=== PATIENT | female | born 1950 | race Caucasian/White ===

== ENCOUNTER 2018-02-26 06:03 | Day surgery (SDC) | payer BC ==
[2018-02-21 16:07] VITALS: BMI 44.4
[2018-02-26] MEDS ORDERED: MIDAZOLAM HCL 2 MG/2 ML SINGLE DOSE VIAL ONE (07:56)
[2018-02-26] MEDS ORDERED: LIDOCAINE HCL/PF 2% SDV 5ML VIAL ONE (07:56)
[2018-02-26] MEDS ORDERED: PROPOFOL 20 ML ONE ×2 (07:56)
--- NOTE | 2018-02-26 08:03 | HP ---
Admitting History and Physical - Admission Chief Complaint: Endometrial polyp History of Present Illness: 67 yo Para 0, with endometrial echo complex is pre op for D&C Hysteroscopy. History Source: Patient Limitations to Obtaining History: No Limitations - Past Medical History ...: No ...: 0 ...Para: 0 - Past Surgical History Past Surgical History: Yes: None - Smoking History Smoking history: Never smoked Have you smoked in the past 12 months: No - Alcohol/Substance Use Hx Alcohol Use: Yes (OCCASIONAL) - Social History Usual Living Arrangement: Yes: Alone History of Recent Travel: No Home Medications - Allergies Allergies/Adverse Reactions: Allergies Allergy/AdvReac Type Severity Reaction Status Date / Time latex Allergy Intermediate rash Unverified 02/26/18 06:38 aspirin Allergy Verified 02/26/18 06:38 stargaze juvenal Allergy Vertigo, Uncoded 02/26/18 06:38 gasjm nj - Home Medications Home Medications: Ambulatory Orders Ca Cmb No.1/Vit D3/B-6/FA/B12 [Vitamin D3 1,000 Unit Tablet] 1 each PO AM tablet 09/27/12 Calcium Carbonate/Vitamin D3 [Calcarb 600 W-Vitamin D Tab] 1 each PO AM tablet 09/27/12 Fluticasone Propionate [Flonase] 16 gm NS PRN PRN 10/16/13 Allopurinol 300 mg PO DAILY 02/21/18 Colchicine 0.6 mg PO DAILY 02/21/18 Family Disease History - Family Disease History Family History: Unremarkable Review of Systems - Review of Systems Constitutional: reports: No Symptoms Eyes: reports: No Symptoms HENT: reports: No Symptoms Neck: reports: No Symptoms Cardiovascular: reports: No Symptoms Respiratory: reports: No Symptoms Gastrointestinal: reports: No Symptoms Genitourinary: reports: No Symptoms Breasts: reports: No Symptoms Reported Musculoskeletal: reports: No Symptoms Integumentary: reports: No Symptoms Neurological: reports: No Symptoms Endocrine: reports: No Symptoms Psychiatric: reports: No Symptoms Pain Intensity: 0 Physical Examination Vital Signs: Vital Signs Temperature 97.6 F 02/26/18 06:35 Pulse Rate 52 L 02/26/18 06:35 Respiratory Rate 20 02/26/18 06:35 Blood Pressure 108/57 02/26/18 06:35 O2 Sat by Pulse Oximetry (%) 98 08/07/18 06:36 Constitutional: Yes: Well Nourished Eyes: Yes: Conjunctiva Clear HENT: Yes: Atraumatic Neck: Yes: Supple Cardiovascular: Yes: Regular Rate and Rhythm Respiratory: Yes: Regular Gastrointestinal: Yes: Normal Bowel Sounds Musculoskeletal: Yes: WNL Extremities: Yes: WNL Neurological: Yes: Alert, Oriented ...Motor Strength: WNL Psychiatric: Yes: Alert, Oriented Problem List - Problems (1) Endometrial polyp Code(s): N84.0 - POLYP OF CORPUS UTERI Assessment/Plan Pre op for D&C Hysteroscopy Consent signed Anesthesia to see patient
[2018-02-26] MEDS ORDERED: DEXAMETHASONE SOD PHOSPHATE 4 MG/1 ML VIAL ONE (08:10)
[2018-02-26] MEDS ORDERED: KETOROLAC TROMETHAMINE 30 MG/1 ML VIAL ONE (08:10)
--- NOTE | 2018-02-26 08:31 | OP ---
Operative Note - Note: Operative Date: 02/26/18 Pre-Operative Diagnosis: Endometrial polyp Operation: D&C Hysteroscopy Findings: Several polyps visualized Post-Operative Diagnosis: Same as Pre-op Surgeon: Ira Regalado Anesthesia: General Specimens Removed: Endometrial curetings Estimated Blood Loss (mls): 5
[2018-02-26] MEDS ORDERED: ONDANSETRON 4 MG/2 ML VIAL IVPUSH PRN (08:42)
[2018-02-26] MEDS ORDERED: oxyCODONE HCL 5 MG TABLET PO PRN (08:42)
[2018-02-26] MEDS ORDERED: LACTATED RINGERS SOLUTION 1,000 ML IV SCH (08:45)
[2018-02-26 10:06] VITALS: TEMP 98
[2018-02-26 11:39] VITALS: BP 102/59; PULSE 53
--- NOTE | 2018-02-28 17:26 | PATH ---
Surgical Pathology Report Patient Name: NATO RODRIGEZ [facility]. Rec. #: [id number] /Age/Gender: 1950 (Age: 67) / F Account: [id number] Location: [facility] Taken: 02/26/2018 Received: 02/26/2018 Reported: 02/28/2018 Physicians: Ira Regalado M.D. Specimen(s) Received ENDOMETRIAL CURETTINGS Clinical History Endometrial polyp Final Diagnosis ENDOMETRIAL CURETTINGS, DILATION AND CURETTAGE: COMPLEX ATYPICAL HYPERPLASIA, CANNOT EXCLUDE WELL-DIFFERENTIATED ADENOCARCINOMA. BENIGN ECTOCERVICAL TISSUE. Comment: Case seen interdepartmentally. Findings discussed with Dr. Regalado. Electronically Signed Marita Ricks M.D. Gross Description Received in formalin labeled "endometrial curettings," is a 2.3 x 2.1 x 0.3 cm aggregate of leone-red soft tissue fragments admixed with blood clot. The formalin is filtered and the specimen is entirely submitted in one cassette. 02/26/2018 saudi02/26/2018
--- NOTE | 2018-04-02 13:35 | OP ---
DATE OF OPERATION: 02/26/2018 PREOPERATIVE DIAGNOSIS: Endometrial polyp. POSTOPERATIVE DIAGNOSIS: Endometrial polyp. PROCEDURE: Dilatation and curettage, hysteroscopy. SURGEON: Ira Regalado MD ANESTHESIA: General. COMPLICATIONS: None. ESTIMATED BLOOD LOSS: 5 mL. DESCRIPTION OF PROCEDURE: Patient was taken to the operating room, where general anesthesia was administered. Patient was then prepped and draped in proper sterile fashion. A weighted speculum was placed in the vagina. The anterior lip of the cervix was grasped with a single-tooth tenaculum. The cervix was then sequentially dilated. Then, a 5-mm hysteroscope was then gently introduced into the uterine cavity. The cavity was visualized. Several polyps noted in the cavity. Then, the hysteroscope was removed. A sharp curettage was then performed. Upon completion of the procedure , the instruments were removed. The patient was taken out of lithotomy position. She was taken to PACU in stable condition. PATHOLOGY: Endometrial curettings. Bud [id number] MTDD
== END 2018-02-26 11:46 | disposition home or self-care (01) ==
LOC: JASU-SURG 06:03
PROVIDERS: ATTEND Obstetrics & Gynecology
PROC: 0UDB7ZX Extraction of Endometrium, Via Natural or Artificial Opening, Diagnostic (ICD-10-PCS; principal; 2018-02-26 08:00)
PROC: 0UJD8ZZ Inspection of Uterus and Cervix, Via Natural or Artificial Opening Endoscopic (ICD-10-PCS; 2018-02-26 08:00)
DX: N84.0 Polyp of corpus uteri (principal)
CPT/HCPCS: 88305-TC; 94760

== ENCOUNTER 2018-04-02 09:43 | Day surgery (SDC) | payer BC ==
[2018-04-01 14:05] VITALS: BMI 43.7
--- NOTE | 2018-04-02 15:02 | HP ---
History & Physical Update - History History: No Change - Physical Physical: No Change - Assessment Assessment: No Change - Plan Plan: No Change
[2018-04-02] MEDS ORDERED: MIDAZOLAM HCL 2 MG/2 ML SINGLE DOSE VIAL ONE (15:15)
[2018-04-02] MEDS ORDERED: DEXAMETHASONE SOD PHOSPHATE 4 MG/1 ML VIAL ONE (15:15)
[2018-04-02] MEDS ORDERED: PROPOFOL 20 ML ONE (15:15)
[2018-04-02] MEDS ORDERED: ROCURONIUM BROMIDE 50 MG/5 ML VIAL ONE (15:15)
[2018-04-02] MEDS ORDERED: fentaNYL CITRATE 250 MCG/5 ML VIAL ONE (15:15)
[2018-04-02] MEDS ORDERED: LIDOCAINE HCL/PF 2% SDV 5ML VIAL ONE (15:15)
[2018-04-02] MEDS ORDERED: ceFAZolin SODIUM 1 GM VIAL IVPB ONE (15:35)
[2018-04-02] MEDS ORDERED: BUPIVACAINE HCL/PF 0.25% (2.5MG/ML) 10 ML VIAL ONE (15:55)
[2018-04-02] MEDS ORDERED: LIDOCAINE 1%/EPI 1:100000 (20 ML MULTI DOSE VIAL) ONE (15:55)
[2018-04-02] MEDS ORDERED: INDOCYANINE GREEN 25 MG/10 ML VIAL IVPUSH ONE ×2 (15:55→16:06)
[2018-04-02] MEDS ORDERED: BUPIVACAINE HCL/PF (5 MG/ML) 30 ML VIAL IJ ONE ×3 (16:05→16:15)
[2018-04-02] MEDS ORDERED: ceFAZolin SODIUM 1 GM VIAL ONE (16:14)
[2018-04-02] MEDS ORDERED: ePHEDrine SULFATE 50 MG/1 ML AMPULE ONE (17:17)
[2018-04-02] MEDS ORDERED: oxyCODONE HCL 5 MG TABLET PO PRN (17:24)
[2018-04-02] MEDS ORDERED: PROMETHAZINE HCL 25 MG/1 ML VIAL IVPUSH PRN (17:24)
[2018-04-02] MEDS ORDERED: ONDANSETRON 4 MG/2 ML VIAL IVPUSH PRN (17:24)
[2018-04-02] MEDS ORDERED: LACTATED RINGERS SOLUTION 1,000 ML IV SCH (17:30)
[2018-04-02] MEDS ORDERED: NEOSTIGMINE METHYLSULFATE 0.5 MG/ML - 10 ML MDV ONE (17:50)
[2018-04-02] MEDS ORDERED: GLYCOPYRROLATE 0.2 MG/1 ML VIAL ONE ×2 (17:51)
[2018-04-02] MEDS ORDERED: KETOROLAC TROMETHAMINE 30 MG/1 ML VIAL ONE (17:51)
--- NOTE | 2018-04-02 18:34 | OP ---
Operative Note - Note: Operative Date: 04/02/18 Pre-Operative Diagnosis: complex atypical hyperplasia, cannot exclude FIGO grade 1 endometrial adenocarcinoma Operation: Robotic total hysterectomy, bilateral salpingoophorectomy, bilateral pelvic sentinel lymph node dissection Findings: uterus 6 week size, bilateral tubes and ovaries normal. No intraabdominal e/o disease. 2 cm left obturator lymph node. No ascites.Upper abdomen normal. Post-Operative Diagnosis: Same as Pre-op Surgeon: Dorothea Slaughter Anesthesia: General, Local Specimens Removed: uterus, cervix, bilateral tubes and ovaries, bilateral pelvic lymph nodes, washings. Estimated Blood Loss (mls): 100 Drains, Volume Out (mls): 0 Operative Report Dictated: Yes
[2018-04-02] MEDS ORDERED: PROCHLORPERAZINE INJECTION 10 MG/2 ML VIAL IVPB PRN (18:36)
[2018-04-02] MEDS ORDERED: diphenhydrAMINE HCL 25 MG CAPSULE (FP) PO PRN (18:36)
[2018-04-02] MEDS ORDERED: ONDANSETRON 4 MG/2 ML VIAL IVPB PRN (18:36)
[2018-04-02] MEDS ORDERED: KETOROLAC TROMETHAMINE 15 MG/ML VIAL IVPUSH SCH (19:00)
[2018-04-02] MEDS: LACTATED RINGERS SOLUTION 1,000 ML IV SCH (20:30)
--- NOTE | 2018-04-02 21:09 | OP ---
DATE OF OPERATION: 04/02/2018 PREOPERATIVE DIAGNOSES: 1. Complex atypical hyperplasia. Cannot exclude a FIGO grade 1 endometrial carcinoma. 2. Morbid obesity. POSTOPERATIVE DIAGNOSES: 1. Complex atypical hyperplasia. Cannot exclude a FIGO grade 1 endometrial carcinoma. 2. Morbid obesity. PROCEDURE: Robotic-assisted total hysterectomy, bilateral salpingo-oophorectomy, bilateral pelvic sentinel lymph node dissection. SURGEON: Dorothea Slaughter MD ANESTHESIA: General endotracheal. ESTIMATED BLOOD LOSS: 100 mL. INDICATIONS: This is a 67-year-old with history of postmenopausal vaginal bleeding. She had a D&C hysteroscopy on February 26, 2018. The pathology returned complex atypical hyperplasia, cannot exclude well-differentiated adenocarcinoma. The patient was counseled regarding surgical management. Risks, benefits, indications, alternatives were discussed with patient. All questions were answered. Informed consent was signed. FINDINGS: Normal liver edge, normal omentum, normal diaphragm. The uterus was approximately 6 weeks size. Bilateral tubes and ovaries appeared normal. There was no lymphadenopathy. There was a moderately enlarged left obturator lymph node, which was not a sentinel lymph node. Evart lymph node on the left did not map well; however, on the right, the right internal iliac sentinel lymph node mapped very clear. PROCEDURE: The patient was taken to the operating room, placed in the dorsal supine position. General endotracheal anesthesia was obtained without difficulty. She was placed in the dorsal lithotomy position in Prieto stirrups and prepped and draped in the normal sterile fashion. A Jacobson catheter was placed in the bladder. A speculum was placed in the vagina. The cervix was grasped with a single-tooth tenaculum and gently dilated. Then 4 mL of 1.25 mg/mL indigo cyanine dye was injected into the cervix at 3 and 9 o'clock superficially and then at 1 cm deep. A [id number] stitch of 0 Vicryl was placed and the VCare uterine manipulator was placed. The tenaculum and speculum were then removed. Attention was turned to the patient's abdomen. Then 5 mL of 0.25% Marcaine was injected into the umbilicus and an 8-mm incision was made with a scalpel, while tenting the anterior abdominal wall. The Veress needle was inserted intraabdominally and the abdomen was insufflated with CO2 gas. An 8-mm trocar was then placed. An additional 8-mm trocar was placed in the left mid quadrant laterally and an 8-mm trocar was placed in the right mid quadrant and a 5-mm port was placed in the right lower quadrant. All trocars were placed under direct visualization after injecting 0.5% Marcaine. A thorough exam of the abdomen and pelvis revealed the above-noted findings. Peritoneal washings were taken using normal saline. The da Di robot was then docked without difficulty. Attention was turned to the patient's pelvis. The left adnexa was elevated, left ureter was noted to be well away from the field of dissection. The left infundibulopelvic ligament was clamped, cauterized, and transected. This was carried through the broad ligament and the round ligament and the vesicouterine peritoneum anteriorly. We looked in the left pelvic sidewall for the sentinel lymph node using Firefly. We were not able to visualize a lymph node at this point so we began the dissection on the right side. The right retroperitoneum was opened. The right retroperitoneum was opened. The right round ligament was clamped, cauterized, and transected. The right ureter was noted to be well away from the field of dissection. The right infundibulopelvic ligament was clamped, cauterized, and transected. This was carried through the broad ligament and the vesicouterine peritoneum anteriorly. The bladder was dissected off the anterior cervix and upper vagina. The uterine arteries bilaterally were skeletonized. They were clamped, cauterized and transected. We looked at the right retroperitoneum, then we were able to dissect the right sentinel lymph node from deep in the right internal iliac space. This was removed and handed off the field. Excellent hemostasis was seen. Surgicel was placed for added assurance. The cardinal ligaments were serially clamped, cauterized and transected. The uterosacral ligaments were clamped, cauterized and transected. Again, we looked in the left retroperitoneum. We opened the obturator space and a sentinel node was not able to be identified. There was, however, a very large, approximately 2 cm lymph node in the left obturator space. This was removed. It did not light up bright green, however. It was handed off the field. The vaginotomy incision was made circumferentially. Uterus, cervix, ovaries, and tubes were passed through the vagina without difficulty. The vaginal cuff was closed in a running continuous fashion using 2-0 V-Loc suture. The pelvis was thoroughly irrigated with saline and noted to be hemostatic. There was some bleeding in the left parametria, which was clamped and cauterized, with care taken to avoid the ureter. Surgicel was placed there for hemostasis. Additional Surgicel was placed on lymph node beds and the vaginal cuff. The pelvis was thoroughly irrigated with saline and noted to be hemostatic. All instruments were removed from the patient's abdomen. Again we looked intraabdominally and excellent hemostasis was seen. The da Di robot was then undocked. The trocars were removed. Skin was closed with 4-0 Monocryl and Dermabond was applied. The patient was extubated and transferred in stable condition to the PACU. Dorothea Slaughter M.D. JOSH/[id number]
[2018-04-02] MEDS: MORPHINE SULFATE 2 MG/ML VIAL IVPUSH SCH (22:24)
[2018-04-02] MEDS: ACETAMINOPHEN 325 MG TABLET (FP) PO SCH ×2 (22:26→23:22)
[2018-04-02] MEDS ORDERED: MORPHINE SULFATE 2 MG/ML VIAL IVPUSH PRN (23:42)
[2018-04-03] MEDS ORDERED: MORPHINE SULFATE 2 MG/ML VIAL IVPUSH SCH (01:00)
[2018-04-03] MEDS: KETOROLAC TROMETHAMINE 30 MG/1 ML VIAL IVPUSH SCH ×2 (03:03→09:00)
[2018-04-03] MEDS: LACTATED RINGERS SOLUTION 1,000 ML IV SCH ×2 (04:01→12:00)
[2018-04-03] MEDS: ACETAMINOPHEN 325 MG TABLET (FP) PO SCH ×3 (06:26→18:13)
[2018-04-03] MEDS ORDERED: LISINOPRIL 20 MG TABLET (FP) PO SCH ×2 (07:00→16:52)
[2018-04-03 08:08] LABS: HEMATOCRIT 32.1 % (32.4-45.2); HEMOGLOBIN 10.7 GM/dL (10.7-15.3); MCH 30.7 pg (25.7-33.7); MCHC 33.5 g/dl (32.0-36.0); MEAN CELL VOLUME 91.8 fl (80-96); MEAN PLT VOLUME 10.5 fl (7.5-11.1); PLATELET COUNT 66 K/MM3 (134-434); RBC 3.49 M/mm3 (3.60-5.2); RDW 14.4 % (11.6-15.6)
[2018-04-03 08:30] LABS: ANION GAP 10 MMOL/L (8-16); BLOOD UREA NITROGEN 32 mg/dL (7-18); CALCIUM 8.2 mg/dL (8.5-10.1); CHLORIDE 102 mmol/L (98-107); CO2 25 mmol/L (21-32); CREATININE 1.6 mg/dL (0.55-1.02); GLUCOSE,RANDOM 123 mg/dL (74-106); SODIUM 137 mmol/L (136-145)
[2018-04-03] MEDS ORDERED: ALLOPURINOL 100 MG TABLET (FP) PO SCH (10:00)
[2018-04-03] MEDS ORDERED: COLCHICINE 0.6 MG TABLET (FP) PO SCH (10:00)
[2018-04-03] MEDS ORDERED: ATENOLOL 50 MG TABLET (FP) PO SCH ×2 (10:00→16:53)
[2018-04-03] MEDS ORDERED: HYDROCHLOROTHIAZIDE 25 MG TABLET (FP) PO SCH (10:00)
--- NOTE | 2018-04-03 11:23 | PN ---
Progress Note (short form) - Note Progress Note: POD#1 Pt feeling better after oob to chair and eating. No CP/SOB, slight dizzy today. She is having no pain and is using tylenol for her pain management. Her dominique was removed this am and she is waiting to void. Vital Signs Period Temp Pulse Resp BP Sys/Griffith Pulse Ox Last 24 Hr 97.5 F-98.5 F 48-63 13-18 89-130/33-80 96-100 GEN: A&0x3, NAD CV: RRR Lungs: CTA b/l anteriorly ABD: soft, non-distended, non-tender. Inc c/d/i with dermabond CBC, BMP //18 07:15 /18 07:15 A/P: 67 yo female s/p Robotic total hysterectomy, bilateral salpingoophorectomy , bilateral pelvic sentinel lymph node dissection Pt oob to chair today Awaiting TOV Continue IV fluids, pt with slight hypotension/dizziness today. Will continue to monitor her and reasses VS. Slight increase in BUN/CRET Pain mangment as needed Stop IV Toradol D/w Dr. Bell
--- NOTE | 2018-04-03 12:45 | PN ---
Progress Note (short form) - Note Progress Note: Anesthesia POD#1 S/P Robotic Hysterectomy and Salpingectomy under GA VSS,some dizziness today,no pain issues,creatinine brielle high. No N/V. A/P Continue hydration. No other problems seen. Liea Nance MD.
[2018-04-03 13:27] VITALS: PULSE 50; TEMP 97.7
[2018-04-03] MEDS ORDERED: SODIUM CHLORIDE 500 ML IV STA (15:23)
[2018-04-03] MEDS ORDERED: LACTATED RINGERS SOLUTION 1,000 ML/1,000 ML INFUS.BAG IV SCH (15:30)
[2018-04-03 16:59] VITALS: BP 115/49
[2018-04-03] MEDS ORDERED: SODIUM CHLORIDE 0.45% 1,000 ML IV SCH (17:00)
--- NOTE | 2018-04-04 17:08 | PATH ---
Cytology Non-Gynecological Report Patient Name: NATO RODRIGEZ [facility] Rec. #: [id number] /Age/Gender: 1950 (Age: 67) / F Account: [id number] Location: [facility] SUR[facility] Taken: 04/02/2018 Received: 04/03/2018 Reported: 04/04/2018 Physicians: Dorothea Slaughter MD Specimen(s) Received PERITONEAL WASHING Clinical History CAH cannot exclude well-differentiated adenocarcinoma Final Diagnosis PERITONEAL WASHING FOR CYTOLOGY: SATISFACTORY FOR EVALUATION. NO MALIGNANT CELLS IDENTIFIED. MESOTHELIAL CELLS, NEUTROPHILS, AND FEW LYMPHOCYTES PRESENT. Comment: See concurrent material ([id number]). Electronically Signed Marita Ricks M.D. Gross Description Approximately 20 cc of clear fluid received fresh. One cytofunnel and one cellblock prepared.
[2018-04-05] MEDS ORDERED: ATORVASTATIN CA 20 MG TABLET (FP) PO SCH (22:00)
--- NOTE | 2018-04-08 13:43 | PATH ---
Surgical Pathology Report Patient Name: NATO RODRIGEZ [facility]. Rec. #: [id number] /Age/Gender: 1950 (Age: 67) / F Account: [id number] Location: [facility] SURGICAL Taken: 04/02/2018 Received: 04/02/2018 Reported: 04/08/2018 Physicians: Dorothea Slaughter MD Specimen(s) Received A: UTERUS, CERVIX, B/L OVARIES AND FALLOPIAN TUBES B: LEFT OBTURATOR LYMPH NODE C: RIGHT INTERNAL ILIAC SENTINEL LYMPH NODE Clinical History Complex atypical hyperplasia Intraoperative Consult Diagnosis Uterus, cervix, bilateral fallopian tubes and ovaries, gross exam: Tumor-like area present. Spoke to Dr. Slaughter. No frozen section is performed. Devin Jewell M.D., 04/02/18 Final Diagnosis A. UTERUS, CERVIX, BILATERAL OVARIES AND FALLOPIAN TUBES, HYSTERECTOMY WITH BILATERAL SALPINGO-OOPHORECTOMY: ENDOMETRIOID CARCINOMA, FIGO GRADE 1, WITH MYOMETRIAL INVASION. DEPTH OF THE MYOMETRIAL INVASION MEASURES 3 MM (20 % THICKNESS OF MYOMETRIUM). SURGICAL MARGINS ARE NEGATIVE FOR CARCINOMA. CERVICAL STROMAL INVOLVEMENT NOT IDENTIFIED. PARAMETRIAL INVOLVEMENT NOT IDENTIFIED. LYMPHOVASCULAR INVASION NOT IDENTIFIED. LYMPH NODE METASTASIS NOT IDENTIFIED. OVARIES WITH BENIGN INCLUSION CYSTS. FALLOPIAN TUBE WITH NO SIGNIFICANT PATHOLOGIC FINDINGS. PATHOLOGIC STAGE (pTNM, AJCC 8TH EDITION):pT1a, pN0 ALSO SEE ENDOMETRIAL CARCINOMA CANCER SUMMARY BELOW. B. LEFT OBTURATOR LYMPH NODE, EXCISION: FRAGMENTS OF LYMPH NODE TISSUE, NEGATIVE FOR METASTATIC CARCINOMA. Comment: At least two lymph nodes. Due to the fragmented lymph node tissue, the exact numbers of the lymph node cannot be assessed. C. RIGHT INTERNAL ILIAC SENTINEL LYMPH NODE, EXCISION: ONE LYMPH NODE, NEGATIVE FOR METASTATIC CARCINOMA (0/1). Intradepartmental case reviewed with consensus on diagnosis. Comments Endometrial Carcinoma :Surgical Pathology Cancer Case Summary Based on AJCC 8th edition Procedure _x_ Total hysterectomy and bilateral salpingo-oophorectomy Tumor Size _x_ Greatest dimension: 2.7cm Histologic Type Endometrioid carcinoma, NOS Histologic Grade _x_ FIGO grade 1 Myometrial Invasion _x_ Present Depth of invasion (millimeters): 3 mm Myometrial thickness (millimeters): 15 mm Percentage of myometrial invasion: 20% Uterine Serosa Involvement _x_ Not identified Cervical Stromal Involvement _x_ Not identified Other Tissue/Organ Involvement Not identified Margins Ectocervical Margin _x_ Uninvolved by carcinoma Parametrial/Paracervical Margin _x_ Uninvolved by carcinoma Lymphovascular Invasion Not identified Regional Lymph Nodes Pelvic Node Examination Number of Pelvic Nodes with Macrometastasis (greater than 2 mm): 0 Number of Pelvic Nodes with Micrometastasis (greater than 0.2 mm and up to 2 mm): 0 Number of Pelvic Nodes with Isolated Tumor Cells (0.2 mm or less): 0 Total Number of Pelvic Nodes Examined (sentinel and non-sentinel): at least 3 Number cannot be determined: fragmented lymph node tissue Number of Pelvic [place] Nodes Examined: 1 Laterality of Pelvic Nodes Examined: LEFT AND Right Pathologic Stage Classification (pTNM, AJCC 8th Edition) Primary Tumor (pT) pT1a: Tumor limited to endometrium or invading less than half of the myometrium Regional Lymph Nodes (pN) (select all that apply) Category (pN) pN0: No regional lymph node metastasis Electronically Signed Librado Jewell M.D. Gross Description A. Received in formalin labeled "uterus, cervix, bilateral ovaries and fallopian tubes," is a 60 g uterus with an attached cervix and bilateral attached adnexa. The specimen measures 7 cm from superior to inferior, 4.2 cm from anterior to posterior and 3.7 cm from left to right. The serosa is pink leone and smooth. The attached cervix measures 3 cm in length and averages 1.6 cm in diameter. The ectocervix is leone, smooth and glistening and displays attached vaginal mucosa. The endocervix is unremarkable. The endometrial cavity measures 3.5 cm in length and 2.3 cm from cornu to cornu. There is a 2.7 x 2.5 cm leone, polypoid endometrial mass in the fundus. The mass invades superficially into the myometrium. There is a 0.8 cm in greatest dimension intramural nodule present. The cut surface of the nodule is leone and rubbery with whorled architecture. No areas of hemorrhage or necrosis are identified. The remaining myometrium is pink-leone and averages 2 cm in thickness. The left fimbriated fallopian tube is leone-gallegos and measures 4 cm in length. Sectioning reveals an unremarkable lumen. The left ovary measures 2.2 x 1.5 x 1.2 cm. The outer surface is leone-yellow, convoluted and smooth. Sectioning reveals a 0.5 cm in greatest dimension cyst. The remaining ovarian parenchyma is unremarkable. The right fimbriated fallopian tube measures 3.2 cm in length. The outer surface is leone-olivera with adhesions. Sectioning reveals an unremarkable lumen. The right ovary measures 2.5 x 1.4 x 1.3 cm. The outer surface is leone-yellow, convoluted and smooth. Sectioning reveals unremarkable ovarian parenchyma. An intraoperative gross examination is performed. After discussing the case with Dr. Slaughter, no frozen section is performed. Brass Plater sections are submitted in 23 cassettes as follows: 1-anterior cervix; 2-posterior cervix; 3-anterior lower uterine segment; 4-posterior lower uterine segment; 5-left parametrium; 6-right parametrium; 2-3-qoupacqm endomyometrium with fundic mass sequentially submitted from superior to inferior; 10-lower anterior endomyometrium with intramural nodule; 61-71-pgomyhwsi endomyometrium with fundic mass sequentially submitted from superior to inferior; 16-lower posterior endomyometrium; 17-left fallopian tube fimbria; 18-cross sections of left fallopian tube; 19-left ovary; 20-right fallopian tube fimbria; 21-cross sections of right fallopian tube; 22-23-right ovary. B. Received in formalin labeled "left obturator lymph node," is a 2.5 x 2.0 x 0.5 cm aggregate of yellow, lobulated adipose tissue. Sectioning reveals multiple possible lymph nodes ranging from 0.4-1.0 cm in greatest dimension. The specimen is entirely submitted in 3 cassettes as follows: 1-one bisected possible lymph node; 3-9-iejajvuq whole possible lymph nodes each. C. Received in formalin labeled "right internal iliac sentinel lymph node," is a 0.7 cm in greatest dimension lymph node with attached fat. The specimen is bisected and entirely submitted in one cassette. 04/03/201804/03/2018
== END 2018-04-03 19:35 | disposition home or self-care (01) ==
LOC: JASU-SURG 09:43 → J3W 22:07 → JASU-SURG 04-03 19:35
PROVIDERS: ATTEND Obstetrics & Gynecology Gynecologic Oncology
PROC: 0UT7FZZ Resection of Bilateral Fallopian Tubes, Via Natural or Artificial Opening With Percutaneous Endoscopic Assistance (ICD-10-PCS; 2018-04-02)
PROC: 8E0W8CZ Robotic Assisted Procedure of Trunk Region, Via Natural or Artificial Opening Endoscopic (ICD-10-PCS; 2018-04-02)
PROC: 07BC4ZX Excision of Pelvis Lymphatic, Percutaneous Endoscopic Approach, Diagnostic (ICD-10-PCS; 2018-04-02)
PROC: 0UT9FZZ Resection of Uterus, Via Natural or Artificial Opening With Percutaneous Endoscopic Assistance (ICD-10-PCS; principal; 2018-04-02 12:00)
PROC: 0UT2FZZ Resection of Bilateral Ovaries, Via Natural or Artificial Opening With Percutaneous Endoscopic Assistance (ICD-10-PCS; 2018-04-02 12:00)
DX: C54.1 Malignant neoplasm of endometrium (principal); E66.01 Morbid (severe) obesity due to excess calories
CPT/HCPCS: 38570; 58552; S2900; 36415; 80048; 85027; 86850; 86900; 86901; 88104; 88305-TC; 88307-TC; 88309-TC; 88329; 94760

== ENCOUNTER 2019-04-23 08:56 | Day surgery (SDC) | payer BC ==
[2019-04-23 09:27] VITALS: TEMP 98.7; BMI 42.9
[2019-04-23] MEDS ORDERED: PROPOFOL 20 ML ONE ×4 (10:24)
[2019-04-23 11:52] VITALS: BP 112/60; PULSE 59
--- NOTE | 2019-04-28 12:15 | PATH ---
Surgical Pathology Report Patient Name: NATO RODRIGEZ [facility]. Rec. #: [id number] /Age/Gender: 1950 (Age: 68) / F Account: [id number] Location: [facility] Taken: 04/23/2019 Received: 04/23/2019 Reported: 04/28/2019 Physicians: Marita Ling M.D. Specimen(s) Received HOT SNARE POLYPECTOMY TRANSVERSE COLON Clinical History Surveillence Postoperative diagnosis: Diverticulosis, colon, polyp, hemorrhage Final Diagnosis TRANSVERSE COLON, POLYP, POLYPECTOMY: POLYPOID COLONIC MUCOSA, WITH DENUDATION OF SURFACE EPITHELIUM AND FOCAL SURFACE HYPERPLASTIC CHANGE. Electronically Signed Kristal Mendoza M.D. Gross Description Received in formalin, labeled "biopsy of polypectomy, transverse colon" is a leone, irregular portion of soft tissue measuring 0.2 cm. in greatest dimension. The specimen is submitted in toto in one cassette. AE/04/24/2019 ebram/04/24/2019
== END 2019-04-23 11:45 | disposition home or self-care (01) ==
LOC: FASU-ENDO 08:56
PROVIDERS: ATTEND Internal Medicine Gastroenterology
PROC: 0DBL8ZX Excision of Transverse Colon, Via Natural or Artificial Opening Endoscopic, Diagnostic (ICD-10-PCS; principal; 2019-04-23 10:33)
DX: Z08 Encounter for follow-up examination after completed treatment for malignant neoplasm (principal); Z85.038 Personal history of other malignant neoplasm of large intestine; D12.3 Benign neoplasm of transverse colon; K57.30 Diverticulosis of large intestine without perforation or abscess without bleeding; K64.1 Second degree hemorrhoids; D69.6 Thrombocytopenia, unspecified
CPT/HCPCS: 88304-TC

== ENCOUNTER 2020-03-16 11:57 | Emergency (ER) | payer BC ==
[2020-03-16 12:07] VITALS: BMI 42.0
[2020-03-16] MEDS ORDERED: SODIUM CHLORIDE 3,334 ML IV ONE (12:26)
[2020-03-16] MEDS ORDERED: ACETAMINOPHEN 1000 MG/100 ML VIAL (NON FORMULARY) IVPB ONE (12:28)
--- NOTE | 2020-03-16 12:28 | PDOC ---
History of Present Illness - General Chief Complaint: Respiratory Stated Complaint: SOB, FEVER, CHILLS, DIARRHEA Time Seen by Provider: 03/16/20 12:02 History Source: Patient Exam Limitations: No Limitations - History of Present Illness Initial Comments: 03/16/20 12:30 69y F hx of hl, htn, uterine ca, ITP, presents with complaint of fever. Pt states she has not been feeling well the past few days. She endorses feeling generally weak, nauseas and vomiting once on sunday, then developed a 104 fever yesterday as well as feeling gassy that she attributes to her diverticulitis bouts. today pt endorses continued fever and felt sob when sh ewas eating breakfast so came to the ED for evaluation. The patient denies any specific complaints of cough, abdominal pain, cp, back pain, sore throatm, dysuria/frequency. pt does endorse softer stools, but states she usually takes colace. No further nausea/vomtiing. Pt lives alone, no known sick contacts. States she has been going out to restaurants/diners during the panemic, but is not aware of coming across anyone sick. PMD: Kezia Surgical hx: hysterctomy 03/16/20 13:52 Past History - Medical History Allergies/Adverse Reactions: Allergies Allergy/AdvReac Type Severity Reaction Status Date / Time latex Allergy Intermediate rash Verified 03/16/20 13:52 aspirin AdvReac Severe PT HAS ITP Verified 03/16/20 13:52 AND TOLD NEVER TO TAKE ASPIRIN stargaze juvenal Allergy Vertigo, Uncoded 03/16/20 13:52 jm casas Home Medications: Ambulatory Orders Ca Cmb No.1/Vit D3/B-6/FA/B12 [Vitamin D3 1,000 Unit Tablet] 1 each PO DAILY tablet 09/27/12 Calcium Carbonate/Vitamin D3 [Calcarb 600 W-Vitamin D Tab] 1 each PO BID tablet 09/27/12 Allopurinol 400 mg PO DAILY 04/01/18 Cyanocobalamin [Vitamin B12 -] 3,000 mcg PO DAILY 04/17/19 Lisinopril 20 mg PO DAILY 04/17/19 Multivit with Calcium,Iron,Min [One Daily Women's] 1 each PO DAILY 04/17/19 Tolterodine Tartrate [Tolterodine Tartrate ER] 4 mg PO DAILY 04/17/19 Anemia: (LOW PLATELETS, pt. has hx.of ITP) Asthma: No Cancer: No Cardiac Disorders: No CVA: No COPD: No CHF: No Dementia: No Diabetes: No GI Disorders: No Disorders: Yes (KIDNEY STONE - LONG TIME AGO) HTN: Yes Hypercholesterolemia: Yes Liver Disease: No Seizures: No Thyroid Disease: No - Surgical History Abdominal Surgery: No Appendectomy: No Cardiac Surgery: No Cholecystectomy: No Lung Surgery: No Neurologic Surgery: No Orthopedic Surgery: No - Reproductive History Is Patient Now?: No - Psycho-Social/Smoking History Smoking History: Never smoked Have you smoked in the past 12 months: No - Substance Abuse Hx (Audit-C & DAST Scrn) How often the patient has a drink containing alcohol: Monthly or less How often the patient has six or more drinks on one occasion: Never Score: In Men: 4 or > Positive; In Women: 3 or > Positive: 1 Screen Result (Pos requires Nsg. Audit-10AR): Negative In the last yr the pt used illegal drug/Rx for NonMed reason: No Score: Yes response is considered Positive: 0 Screen Result (Positive result requires Nsg. DAST-10): Negative Review of Systems - Review of Systems Able to Perform ROS?: Yes Comments:: 03/16/20 12:37 Constitutional - + Fever, Chills, HEENT: no reported vision changes, sore throat Respiratory: +sob no reported cough, hemoptysis Cardiac: no reported chest pain, palpitations, light headedness, leg swelling Abd/GI: + nausea, vomiting, gassy, no reported abd pain, blood per rectum, melena, diarrhea : no reported dysuria, frequency, discharge Musculskelatal - no reported back pain, joint swelling skin - no reported bruising, erythema, rash neurological: no reported headache, numbness, focal weakness, tingling, ataxia, hematologic: no reported easy bruising, easy bleeding *Physical Exam - Vital Signs Last Vital Signs Temp Pulse Resp BP Pulse Ox 102.8 F H 99 H 22 H 94/52 L 96 03/16/20 11:59 03/16/20 11:59 03/16/20 11:59 03/16/20 11:59 03/16/20 11:59 - Physical Exam 03/16/20 12:38 GENERAL: The patient is awake, alert, and fully oriented, Nontoxic - in no acute distress. HEAD: Normocephalic, atraumatic. EYES: extraocular movements intact, sclera anicteric, conjunctiva clear. ENT: Normal voice, Moist mucous membranes. NECK: Normal range of motion, supple LUNGS: Breath sounds equal, clear to auscultation bilaterally. No wheezes, no rhonchi, no rales. HEART: Regular rate and rhythm, normal S1 and S2 without murmur, rub or gallop. ABDOMEN: Soft, mild diffuse R sided tenderness, No guarding, no rebound. No CVA tenderness, Neg murphies, EXTREMITIES: Normal range of motion, no edema. NEUROLOGICAL: No facial assymetry, Normal speech, PSYCH: Normal mood, normal affect. SKIN: Hot to touch, Dry, normal turgor, Heart Score/ECG Review - ECG Impressions Comment:: 03/16/20 14:15 Twelve-lead EKG was performed and reviewed by me. There is normal sinus rhythm with a normal rate. Rate of 86 The intervals are normal. There is normal R wave progression Nonspecific ST wave changes 03/16/20 18:03 Twelve-lead EKG was performed and reviewed by me. Irregularly irregular, rate of [address] deperssions, likely demand ischemia impression: rapdi afib ED Treatment Course - LABORATORY CBC & Chemistry Diagram: 03/16/20 12:45 03/16/20 18:16 - RADIOLOGY Radiology Studies Ordered: Category Date Time Status CHEST X-RAY PORTABLE* [RAD] Stat Radiology 03/16/20 12:26 Ordered Medical Decision Making - Critical Care Time Total Critical Care Time (minutes): 65 Critical Care Statement: The care of this patient involved high complexity decision making to prevent further life threatening deterioration of the patient's condition and/or to evaluate & treat vital organ system(s) failure or risk of failure. - Medical Decision Making 03/16/20 12:40 ddx is broad an includes but is not limited to covid, diverticultis, pna, cnolecystitis, uti sepsis orderset obtained pts vitals noted for fever -w ill give antipyretic bp noted low normal - will give fluids for hydration will reasess 03/16/20 15:35 pt had a few BPs that were low, suspect due to mispositioning (pt was sitting up and arm was resting on the armrail). repeat bp with appropriate possitioning 86/56 - still low - will continue fluid resusitation LA elevated - continuing to receive hydration awaiting CMP 03/16/20 15:53 Laboratory Tests 03/16/20 03/16/20 12:45 12:45 Sodium 133 L Potassium 3.4 L BUN 38.0 H Creatinine 1.9 H Lactic Acid 5.2 H* Calcium 8.3 L Total Bilirubin 5.9 H AST 45 H ALT 76 H Alkaline Phosphatase 270 H Total Protein 6.2 L Albumin 2.7 L labs reviewed noted for emka with bun 38, 1.9 - will continue fluid resusitation and cristian recheck LA Tbili/LFTs elevated -w ill obtani RUQ US pt written for zosyn - presumptive GB in origin still awiating UA anticipate admission, possible ICU 03/16/20 17:58 The patient was noted to go into rapid heart rate That appeared to be irreg ularly irregular ranging from the 140s to the 150s. Her blood pressure was 75/65. awiating ekga nd repeat vitals/temp 03/16/20 18:09 still awiating readiology read. pt on 4L of NS, bp slightly improved HR still elevated in 140s-150s irregular denies any cp, but notse mildly sob will hold ac due to thrombocytpenia and potential for emergent procedure 03/16/20 18:29 case dw cardiology - in light of labs and clinical status, recommend metoprolol for hr control, if not effective can use diltiazem pt currently denies any lightheadedness but does endorse mild sob - lungs clear without signs of fluid overload case dw radiology - noted for slightly thickened gb wall, +gall stones and dilateed CBD - case dw dr. mcneil - requested transfer, agreed with abx, will likely need MRCP will transfer to [facility] 03/16/20 18:38 03/16/20 18:39 03/16/20 18:[address] Alcazar (hospitalist at [facility]) accpeted for ED to ED transfer 03/16/20 19:03 Discharge - Discharge Information Problems reviewed: Yes Clinical Impression/Diagnosis: Choledocholithiasis with acute cholecystitis, Severe sepsis, Cholangiectasis Atrial fibrillation Qualifiers: Atrial fibrillation type: unspecified Qualified Code(s): I48.91 - Unspecified atrial fibrillation Acute renal failure Qualifiers: Acute renal failure type: unspecified Qualified Code(s): N17.9 - Acute kidney failure, unspecified Condition: Critical Disposition: TRANSFER ACUTE CARE/OTHER HOSP - Admission No - Follow up/Referral Referrals: Emile Mast MD [Primary Care Provider] - - Patient Discharge Instructions - Post Discharge Activity - Transfer to Acute Care Facility Receiving Facility Name: [facility] [place] Accepting Physician:: Dr. Alcazar
[2020-03-16] MEDS ORDERED: ACETAMINOPHEN INJECTION 100 ML IVPB ONE (12:59)
[2020-03-16 13:30] LABS: ACTIVATED PTT 26.8 SECONDS (25.2-36.5)
[2020-03-16 13:32] LABS: HEMATOCRIT 36.7 % (32.4-45.2); HEMOGLOBIN 12.4 GM/dl (10.7-15.3); MCH 31.5 pg (25.7-33.7); MCHC 33.8 g/dl (32.0-36.0); MEAN CELL VOLUME 93.1 fl (80-96); MEAN PLT VOLUME 11.3 fl (7.5-11.1); PLATELET COUNT 73 K/MM3 (134-434); RBC 3.94 M/mm3 (3.60-5.2); RDW 14.1 % (11.6-15.6); WHITE BLOOD COUNT 11.6 K/mm3 (4.0-10.8)
[2020-03-16 13:34] LABS: INR 1.79 (0.82-1.09); PROTHROMBIN TIME (PATIENT) 19.8 SEC (10.2-13.0)
--- NOTE | 2020-03-16 14:35 | EKG ---
Test Reason : Blood Pressure : / mmHG Vent. Rate : 086 BPM Atrial Rate : 086 BPM P-R Int : 154 ms QRS Dur : 072 ms QT Int : 356 ms P-R-T Axes : 037 -12 093 degrees QTc Int : 426 ms NORMAL SINUS RHYTHM NONSPECIFIC ST AND T WAVE ABNORMALITY ABNORMAL ECG WHEN COMPARED WITH ECG OF 13-APR-2000 17:34, NONSPECIFIC T WAVE ABNORMALITY, IMPROVED IN ANTEROLATERAL LEADS Confirmed by MD Sumeet, Peter ([id number]) on 03/16/2020 2:35:45 PM Referred By: VI GASTON Confirmed By:Peter Fay MD
[2020-03-16 15:35] LABS: CREATININE 1.9 mg/dL (0.55-1.3); POTASSIUM 3.4 mmol/L (3.5-5.1)
[2020-03-16 15:36] LABS: ALBUMIN 2.7 g/dl (3.4-5.0); BILIRUBIN,TOTAL 5.9 mg/dL (0.2-1); CALCIUM 8.3 mg/dL (8.5-10.1); TOT PROT 6.2 g/dl (6.4-8.2)
[2020-03-16] MEDS ORDERED: PIPERACILLIN/TAZOB 4.5 GM 4.5 GM in DEXTROSE 5%-WATER 100 ML IVPB ONE (15:47)
[2020-03-16] MEDS ORDERED: PIPERACILLIN/TAZOBACTAM 4.5 GM VIAL IVPB ONE (16:37)
[2020-03-16 16:40] LABS: EPITHELIAL CELLS FEW /hpf
[2020-03-16] MEDS ORDERED: METOPROLOL TARTRATE 5 MG/5 ML VIAL IVPUSH ONE (18:22)
[2020-03-16] MEDS ORDERED: METOPROLOL TARTRATE 5 MG/5 ML VIAL ONE (18:33)
[2020-03-16 18:51] LABS: ALBUMIN 2.5 g/dl (3.4-5.0); BILIRUBIN,TOTAL 5.7 mg/dl (0.2-1); CALCIUM 7.5 mg/dl (8.5-10); CREATININE 1.8 mg/dl (0.55-1.3); POTASSIUM 3.3 mmol/L (3.5-5.1); TOT PROT 5.1 g/dl (6.4-8.2)
[2020-03-16 18:57] LABS: PLATELET ESTIMATE DECREASED
[2020-03-16] MEDS ORDERED: dilTIAZem HCL 125 MG/25 ML - 25 ML VIAL ONE (18:57)
[2020-03-16] MEDS ORDERED: dilTIAZem HCL 50 MG/10 ML - 10 ML VIAL IVPUSH ONE (19:01)
[2020-03-16 19:20] LABS: VENOUS BASE EXCESS -7.3 mmol/L (-2-2); VENOUS PCO2 34.2 mmHg (38-52); VENOUS PH 7.329 (7.310-7.410)
[2020-03-16] MEDS ORDERED: DIGOXIN 0.5 MG/2 ML AMPUL IVPB ONE (20:05)
[2020-03-16] MEDS ORDERED: DIGOXIN 0.5 MG/2 ML AMPUL ONE (20:35)
[2020-03-16 21:20] VITALS: BP 88/69; PULSE 142; TEMP 100.2
--- NOTE | 2020-03-17 10:28 | EKG ---
Test Reason : Blood Pressure : / mmHG Vent. Rate : 150 BPM Atrial Rate : 174 BPM P-R Int : 000 ms QRS Dur : 078 ms QT Int : 300 ms P-R-T Axes : 000 044 191 degrees QTc Int : 474 ms ATRIAL FIBRILLATION WITH RAPID VENTRICULAR RESPONSE MARKED ST ABNORMALITY, POSSIBLE LATERAL SUBENDOCARDIAL INJURY ABNORMAL ECG WHEN COMPARED WITH ECG OF 16-MAR-2020 13:14, ATRIAL FIBRILLATION HAS REPLACED SINUS RHYTHM VENT. RATE HAS INCREASED BY 64 BPM QUESTIONABLE CHANGE IN QRS AXIS ST MORE DEPRESSED ANTEROLATERAL LEADS T WAVE INVERSION NOW EVIDENT IN INFERIOR LEADS T WAVE INVERSION NOW EVIDENT IN ANTEROLATERAL LEADS Confirmed by MD Sumeet, Peter ([id number]) on 03/17/2020 10:28:04 AM Referred By: VI GASTON Confirmed By:Peter Fay MD
== END 2020-03-16 21:30 | disposition short-term general hospital (02) ==
LOC: FER 11:57
PROC: 3E03329 Introduction of Other Anti-infective into Peripheral Vein, Percutaneous Approach (ICD-10-PCS; principal; 2020-03-16)
PROC: 3E033GC Introduction of Other Therapeutic Substance into Peripheral Vein, Percutaneous Approach (ICD-10-PCS; 2020-03-16)
PROC: 3E0337Z Introduction of Electrolytic and Water Balance Substance into Peripheral Vein, Percutaneous Approach (ICD-10-PCS; 2020-03-16)
DX: K80.01 Calculus of gallbladder with acute cholecystitis with obstruction (principal); R65.20 Severe sepsis without septic shock
CPT/HCPCS: 36415; 71045-TC-FY; 76705-TC; 80053; 81003; 81015; 82550; 82553; 82803; 83605; 84484; 85025; 85610; 85730; 86769; 87040; 87077; 87086; 87186; 93005; 99291; J0131; U0003

== ENCOUNTER 2021-05-18 10:55 | Day surgery (SDC) | payer BC ==
[2021-05-18 11:47] VITALS: BMI 39.4
[2021-05-18] MEDS ORDERED: PROPOFOL 20 ML ONE ×2 (13:18)
[2021-05-18 13:51] VITALS: TEMP 98.4
[2021-05-18 14:06] VITALS: BP 108/50; PULSE 70
== END 2021-05-18 14:16 | disposition home or self-care (01) ==
LOC: FASU-ENDO 10:55
PROVIDERS: ATTEND Internal Medicine Gastroenterology
PROC: 0DJD8ZZ Inspection of Lower Intestinal Tract, Via Natural or Artificial Opening Endoscopic (ICD-10-PCS; principal; 2021-05-18 13:19)
DX: Z86.010 Personal history of colon polyps (principal); K64.1 Second degree hemorrhoids; K57.30 Diverticulosis of large intestine without perforation or abscess without bleeding

== ENCOUNTER 2024-12-24 09:16 | Day surgery (SDC) | payer BC ==
[2024-12-22 12:53] VITALS: BMI 45.5
[2024-12-24] MEDS ORDERED: ONDANSETRON 4 MG/2 ML VIAL ONE (10:43)
[2024-12-24] MEDS ORDERED: GLYCOPYRROLATE 0.2 MG/1 ML VIAL ONE (10:43)
[2024-12-24] MEDS ORDERED: MIDAZOLAM HCL 2 MG/2 ML SINGLE DOSE VIAL ONE (10:56)
[2024-12-24 11:19] VITALS: PULSE 61; TEMP 98
[2024-12-24 11:28] VITALS: RESP 18
[2024-12-24 11:30] VITALS: BP 131/63
== END 2024-12-24 11:52 | disposition home or self-care (01) ==
LOC: FASU-ENDO 09:16
PROVIDERS: ATTEND Internal Medicine Gastroenterology
PROC: 0DB68ZX Excision of Stomach, Via Natural or Artificial Opening Endoscopic, Diagnostic (ICD-10-PCS; 2024-12-24)
PROC: 0DB48ZX Excision of Esophagogastric Junction, Via Natural or Artificial Opening Endoscopic, Diagnostic (ICD-10-PCS; 2024-12-24)
PROC: 0DJ08ZZ Inspection of Upper Intestinal Tract, Via Natural or Artificial Opening Endoscopic (ICD-10-PCS; 2024-12-24)
PROC: 0DB98ZX Excision of Duodenum, Via Natural or Artificial Opening Endoscopic, Diagnostic (ICD-10-PCS; principal; 2024-12-24 10:58)
DX: K29.80 Duodenitis without bleeding (principal); K29.50 Unspecified chronic gastritis without bleeding; K20.90 Esophagitis, unspecified without bleeding; R10.13 Epigastric pain; Z87.11 Personal history of peptic ulcer disease
CPT/HCPCS: 88305-TC; 88342-TC